=== PATIENT | male | born 1930 | race Caucasian/White ===

== ENCOUNTER 2018-03-15 12:54 | Emergency (ER) | payer MEDICARE, OTHER ==
[2018-03-15] MEDS ORDERED: Acetaminophen 500 MG TAB ONE (14:50)
--- NOTE | 2018-03-15 15:02 | CT ---
CT BRAIN WITHOUT CONTRAST: Date: 03/15/18 HISTORY: Fall. Trauma. COMPARISON: CT brain dated 01/22/16. FINDINGS: Moderate atrophy. Moderate to severe microvascular ischemic changes, chronic. There is small volume f luid in the right mastoids. No acute hemorrhage or large volume infarction. IMPRESSION: Chronic findings. No acute intracranial abnormality. POS: [facility]
--- NOTE | 2018-03-15 15:38 | RAD ---
RIGHT HIP 2 VIEWS: Date: 03/15/18 HISTORY: Right hip injury. FINDINGS: Mild osteophytosis. Minimal joint space narrowing. Femoral head contour is maintained. No acute fract ure or dislocation. IMPRESSION: No acute osseous abnormalities are demonstrated. POS: [facility]
--- NOTE | 2018-03-15 15:39 | RAD ---
AP PELVIS 1 VIEW: Date: 03/15/18 HISTORY: Pelvic injury. FINDINGS: No displaced fractures are apparent. Sacrum partially obscured by bowel content and pelvic calcificat ions. Mild degenerative changes of each hip. Pelvic rings are intact. Calcification over the arterial structures. IMPRESSION: 1. No acute osseous abnormalities are demonstrated. 2. Atherosclerosis. POS: [facility]
--- NOTE | 2018-03-15 15:40 | RAD ---
CHEST 1 VIEW: Date: 03/15/18 HISTORY: Preop. COMPARISON: 01/22/16. FINDINGS: Cardiac silhouette is magnified by projection. Pulmonary vasculature is unremarkable. Mediastinum is midline with aortic calcification. No lobar consolidation or evidence of pneumothorax. IMPRESSION: 1. Atherosclerosis. 2. No acute cardiopulmonary abnormalities are otherwise demonstrated. POS: [facility]
== END 2018-03-15 16:07 | disposition home or self-care (01) ==
LOC: ERS 12:54
DX: S70.01XA Contusion of right hip, initial encounter (principal); S50.312A Abrasion of left elbow, initial encounter; S50.311A Abrasion of right elbow, initial encounter; I10 Essential (primary) hypertension; F17.210 Nicotine dependence, cigarettes, uncomplicated; Z79.82 Long term (current) use of aspirin; W18.30XA Fall on same level, unspecified, initial encounter
CPT/HCPCS: 70450; 71045; 72170

== ENCOUNTER 2018-05-16 14:21 | Inpatient (IN) | payer MEDICARE, MEDICAID ==
[2018-05-16 15:21] LABS: #Lymphocytes 0.5 thou/uL (1.20-3.40); #Monocytes 0.5 thou/uL (0.11-0.59); #Neutrophils 7.2 thou/uL (1.40-6.50); %Basophils 0.2 % (0.0-1.0); %Eosinophils 0.5 % (0.0-10.0); %Lymphocytes 6.5 % (21.0-51.0); %Monocytes 5.9 % (0.0-10.0); %Neutrophils 86.8 % (42.0-75.0); Hemoglobin 13.5 g/dL (14.0-18.0); Mean Corpuscular HGB CONC 32.7 g/dL (32.0-36.0); Mean Corpuscular Hemoglobin 30.3 pg (27.0-31.0); Mean Corpuscular Volume 92.6 fL (78.0-98.0); Mean Platelet Volume 8.5 fL (7.4-10.4); Platelet Count 187 thou/uL (130-400); RBC Distribution Width 13.3 % (11.5-14.5); Red Blood Cell (RBC) Count 4.47 mill/uL (4.70-6.10); White Blood Cell (WBC) Count 8.3 thou/uL (4.8-10.8)
--- NOTE | 2018-05-16 15:32 | RAD ---
RADIOGRAPH CHEST 1 VIEW: HISTORY: An 87-year-old male with chest pain. FINDINGS: The thoracic aorta is tortuous and ectatic. There is no evidence of air space density, pneumothorax, or pulmonary edema. The lateral costophrenic angles are sharp. There is no cardiomegaly. IMPRESSION: 1) No acute pulmonary findings. 2) Ectasia of thoracic aorta. jessie [] POS: [facility]
[2018-05-16 15:36] LABS: ALT (SGPT) 17 U/L (8-55); AST (SGOT) 28 U/L (5-34); Albumin 3.5 g/dL (3.4-4.8); Alcohol Less than 10 mg/dL (Less than 10); Alkaline Phosphatase 92 U/L (40-150); Anion Gap 14 mmol/L (10-20); BUN (Urea Nitrogen) 23 mg/dL (8.4-25.7); Bilirubin, Total 0.7 mg/dL (0.2-1.2); CK (CPK) 559 U/L (30-200); Calc. Creatinine Clearance 0 mL/min (70-130); Calcium 9.3 mg/dL (7.8-10.44); Carbon Dioxide 24 mmol/L (23-31); Chloride 106 mmol/L (98-107); Estimated GFR-MDRD 47; Globulin 2.9 g/dL (2.4-3.5); Glucose 94 mg/dL (83-110); Potassium 4.7 mmol/L (3.5-5.1); Protein, Total 6.4 g/dL (5.8-8.1); Sodium 139 mmol/L (136-145)
--- NOTE | 2018-05-16 16:22 | CT ---
CT OF THE BRAIN WITHOUT CONTRAST 05/16/18 INDICATION 87-year-old male status post fall. COMPARISON: Prior exam dated 03/15/18. FINDINGS: There is left periorbital soft tissue contusion. There is left frontal scalp and left parietal scalp contusion. There is stable moderate chronic small vessel white matter ischemic change. Septum pellucidum and thi rd ventricle are midline. No acute infarct, hemorrhage or hydrocephalus is present. Partial effusion of the right mastoid air cells is stable to the prior dated 03/15/18. IMPRESSION: 1. No acute intracranial abnormality. 2. Left periorbital soft tissue contusion and left frontal parietal scalp contusion. 3. Stable moderate chronic small vessel white matter ischemic change. POS: [facility]
[2018-05-16] MEDS ORDERED: Thiamine 100 MG TAB PO SCH (17:30)
[2018-05-16 17:44] LABS: Bilirubin Negative (Negative); Blood, Urine Moderate (Negative); Clarity CLEAR (Clear); Glucose, Urine (Dipstick) Negative (Negative); Leukocyte Negative (Negative); Nitrite Negative (Negative); Protein, Urine (Dipstick) 100 mg/dL (Neg-Trace)
[2018-05-16 17:46] LABS: Bacteria/HPF None Seen HPF (None Seen); Hyaline Casts/LPF 0-3 HYALINE CAST LPF (0-3 Hyaline); Squamous Epithelial 0-3 HPF (0-3); WBC/HPF 0-3 HPF (0-3)
[2018-05-16] MEDS ORDERED: Thiamine 100 MG TAB ONE (18:21)
--- NOTE | 2018-05-16 18:44 | PDOC.FPRHP ---
- History of Present Illness Chief Complaint: found down History of Present Illness: The patient is an 87YO gentleman with a PMH significant for HTN and tobacco use who was brought to the ED via EMS after his neighbor found him down at home around noon on the date of presentation. The history was obtained from the admitting ER physician and the patient's neighbor who was present at the time of examination as the patient was only oriented to self. He could also not recall any events leading up to him coming to the ED. Per the ED physician, the patient was found down at home earlier today covered in feces. Per the patient' s neighbor, Dpahne, she went and checked on the patient 3 times the day before she found him down at home. She did report that he has not quite been acting like himself over the last 2 weeks and reports decreased PO intake, increased fragility, and confusion. She also reports that the patient has refused to let her bathe him for at least 2 weeks. Daphne stated that she last saw the patient around 11PM the night before. She reports finding the patient down at home around noon on the date of admission with feces in his hair and sores on his legs suggesting he had been crawling around on the floor. Of note, per the patient's PCP, APS had been previously notified of this patient 's unsafe home environment and his inability to properly care for himself and had opened a case on him. However, they did not pursue anything further after the patient refused placement and was deemed competent enough to make such a decision. ED Course: 1L LR & 100mg thiamine - Allergies/Adverse Reactions Allergies Allergy/AdvReac Type Severity Reaction Status Date / Time No Known Allergies Allergy Verified 01/22/16 12:37 - Home Medications Medication Instructions Recorded Confirmed Type Aspirin [Ecotrin Low Strength] 81 mg PO DAILY 01/22/16 01/22/16 History Hydrochlorothiazide 12.5 mg PO DAILY 01/22/16 01/22/16 History Lisinopril [Zestril] 40 mg PO DAILY 01/22/16 01/22/16 History Naproxen Sodium [Aleve] 220 mg PO DAILY 01/22/16 01/22/16 History Esomeprazole Magnesium [NexIUM] 40 mg PO DAILY #30 01/23/16 Rx Fluconazole [Diflucan] 100 mg PO DAILY #13 tab 01/23/16 Rx - History PMHx: HTN, PVD, psoriasis, OA, h/o PUD & GI bleed PSHx: none FHx: non-contributory Social: The patient lives at home alone in [place] and per his neighbor, his house is very unkept and unsafe. Per chart review, patient smokes but no reported EtOH or drug use. - Review of Systems ROS unobtainable: due to mental status - Vital signs BP: 172/63 HR: 72 RR: 19 Tmax: 98.5F Pox: 100% on RA Wt: 47.63 kg - Physical Exam Constitutional: NAD -Constitutional: oriented only to person and easily flustered on questioning; extremely unkept with feces covering head and face & multiple sores on LEs HEENT: MMM, oropharynx clear, other (matted left eye w/ purulent discharge and conjunctival injection noted; extremely poor dentition; mild edema and erythema under left eye) Neck: supple, FROM Chest: no-tender to palpation, no lesions Heart: RRR, normal S1/S2, pulses present, no edema Lungs: CTAB, no respiratory distress, good air movement, no wheezing, no retractions Abdomen: soft, non-tender, bowel sounds present Musculoskeletal: normal structure, ROM grossly normal Neurological: no focal deficit, CN II-XII intact (grossly), normal sensation Skin: good turgor, no jaundice -Skin: ulcerations on B/L LEs, notably on knees and feet Heme/Lymphatic: no unusual bruising or bleeding, no purpura, no petechia Psychiatric: other (Poor judgment and insight with poor recent and remote memory as well) FMR H&P: Results - Labs Result Diagrams: 05/16/18 15:08 05/16/18 15:08 Lab results: WBC 8.3 thou/uL (4.8-10.8) 05/16/18 15:08 Hgb 13.5 g/dL (14.0-18.0) L 05/16/18 15:08 Hct 41.4 % (42.0-52.0) L 05/16/18 15:08 MCV 92.6 fL (78.0-98.0) 05/16/18 15:08 Plt Count 187 thou/uL (130-400) 05/16/18 15:08 Neutrophils % 86.8 % (42.0-75.0) H 05/16/18 15:08 Sodium 139 mmol/L (136-145) 05/16/18 15:08 Potassium 4.7 mmol/L (3.5-5.1) 05/16/18 15:08 Chloride 106 mmol/L (98-107) 05/16/18 15:08 Carbon Dioxide 24 mmol/L (23-31) 05/16/18 15:08 BUN 23 mg/dL (8.4-25.7) 05/16/18 15:08 Creatinine 1.42 mg/dL (0.7-1.3) H 05/16/18 15:08 Glucose 94 mg/dL (83-110) 05/16/18 15:08 Calcium 9.3 mg/dL (7.8-10.44) 05/16/18 15:08 Total Bilirubin 0.7 mg/dL (0.2-1.2) 05/16/18 15:08 AST 28 U/L (5-34) 05/16/18 15:08 ALT 17 U/L (8-55) 05/16/18 15:08 Alkaline Phosphatase 92 U/L (40-150) 05/16/18 15:08 Creatine Kinase 559 U/L (30-200) H 05/16/18 15:08 Serum Total Protein 6.4 g/dL (5.8-8.1) 05/16/18 15:08 Albumin 3.5 g/dL (3.4-4.8) 05/16/18 15:08 Urine Ketones Trace mg/dL (Negative) H 05/16/18 17:00 Urine Blood Moderate (Negative) H 05/16/18 17:00 Urine Nitrite Negative (Negative) 05/16/18 17:00 Ur Leukocyte Esterase Negative (Negative) 05/16/18 17:00 Urine RBC 11-20 HPF (0-3) H 05/16/18 17:00 Urine WBC 0-3 HPF (0-3) 05/16/18 17:00 Ur Squamous Epith Cells 0-3 HPF (0-3) 05/16/18 17:00 Urine Bacteria None Seen HPF (None Seen) 05/16/18 17:00 - EKG Interpretation EKG: Sinus w/ periodic PVCs. prolonged QTc of 488. - Radiology Interpretation CT scan - head Status: report reviewed by me ( L periorbital soft tissue contusion & L frontal parietal scalp contusion w/ stable moderate small vessel chronic ischemic changes) Chest x-ray Status: report reviewed by me (negative) FMR H&P: A/P - Problem List (1) LENA (acute kidney injury) Current Visit: No Status: Acute Code(s): N17.9 - ACUTE KIDNEY FAILURE, UNSPECIFIED (2) Osteoarthritis Current Visit: Yes Status: Chronic Code(s): M19.90 - UNSPECIFIED OSTEOARTHRITIS, UNSPECIFIED SITE (3) History of GI bleed Current Visit: Yes Status: Chronic Code(s): Z87.19 - PERSONAL HISTORY OF OTHER DISEASES OF THE DIGESTIVE SYSTEM (4) Psoriasis Current Visit: Yes Status: Chronic Code(s): L40.9 - PSORIASIS, UNSPECIFIED (5) HTN (hypertension) Current Visit: No Status: Chronic Code(s): I10 - ESSENTIAL (PRIMARY) HYPERTENSION (6) PVD (peripheral vascular disease) Current Visit: No Status: Chronic Code(s): I73.9 - PERIPHERAL VASCULAR DISEASE, UNSPECIFIED (7) Tobacco use Current Visit: No Status: Chronic Code(s): Z72.0 - TOBACCO USE (8) Conjunctivitis Current Visit: Yes Status: Acute Code(s): H10.9 - UNSPECIFIED CONJUNCTIVITIS Qualifiers: Conjunctivitis type: acute Acute conjunctivitis type: bacterial Laterality: left Qualified Code(s): H10.32 - Unspecified acute conjunctivitis , left eye - Plan 87YOM with h/o HTN & PVD who was brought in via EMS after being found down at home and found to have an LENA. LENA 2/2 volume depletion from poor PO intake: - Cr of 1.42 on admission which is > than baseline per chart review. Likely pre- renal 2/2 volume depletion from poor PO intake as CK was also slightly elevated at just over 500. - s/p 1L of LR in the ED. Will continue mIVFs w/ LR @ 90mL/hr overnight and recheck patient's Cr in the AM. Inability to care for self: - Patient has a difficult home situation and APS has been asked to look as him once before already as PCP felt his home was an unsafe environment. - CM consulted to get APS on board again as patient is NOT safe to return home. - WC also consulted to address leg sores. - PT & OT also consulted to address physical deconditioning reported by neighbor. Bacterial conjunctivitis: - L eye matted shut w/ purulent d/c noted. Will start on topical erythromycin ointment. HTN: - Aware, will resume home meds. PVD: - Will resume home meds. OA: - Aware, will give tylenol PRN for pain h/o GI bleed 2/2 PUD: - Aware, will resume home PPI. psoriasis: - Aware, patient not on any home meds at this time. Dispo: Will admit to medical obs and hydrate overnight. Will need CM to assist w / placement for discharge as patient unsafe to go home. FMR H&P: Upper Level - Pertinent history 87 yo male here after being found down in house by neighbor, Daphne, who provides most of the history. Patient has a history of frequent falls, peripheral vascular disease, tobacco abuse. Neighbor is an informal manager marketing for [employer] and goes to his house about 3 times a day. She reports that patient has been declining over the past couple weeks, eating less, more easily agitated. Friday night around 23:00 when she left was the last time she saw him. However, when she came over around lunch today, he was crawling on the floor, covered in feces and the left side of his face was swollen. He does not remember anything prior to coming into ER. He is only oriented to person. - Pertinent findings 155/72 HR: 74 RR: 21 GEN: smelled of feces with dried stool on face, arms, legs EYES: left eye swollen shut, purulent discharge on left eyelids SKIN: skin tears on forearms, knees, legs Creatinine: 1.42 TROP: 0.230, 0.201 CK: 559 Brain and CXR reviewed and unremarkable - Plan Date/Time: 05/16/18 226 INilson DO, have evaluated this patient and agree with findings/plan as outlined by internet marketer resident. Pertinent changes/additions are listed here. 1. LENA: patient is s/p 1L NS in the ER, continue to fluid resuscitate, recheck in AM 2. Encephalopathy: patient seems to be altered from baseline, per the neighbor she reports he is more agitated and less agreeable to things like bathing, also he is falling more. Clinic records indicate he has been evaluated by APS in the past month or so. However he might benefit from a higher level of care. Will have social work evaluate. 3. Conjunctivitis: erythromycin ophth
[2018-05-16 21:34] LABS: Troponin I 0.201 ng/mL (< 0.028)
[2018-05-17 00:21] LABS: Troponin I 0.188 ng/mL (< 0.028)
[2018-05-17] MEDS ORDERED: Acetaminophen 325 MG TAB PO PRN ×2 (01:47→03:05)
[2018-05-17] MEDS ORDERED: Ondansetron ODT 4 MG TAB SL PRN (01:47)
[2018-05-17] MEDS ORDERED: Ondansetron PF 4 MG/2 ML Vial IVP PRN (01:47)
[2018-05-17] MEDS ORDERED: Lactated Ringer's 1,000 ML IV SCH ×2 (01:47→03:05)
[2018-05-17] MEDS ORDERED: Ondansetron ODT 4 MG TAB PO PRN (03:05)
[2018-05-17 05:33] LABS: Anion Gap 12 mmol/L (10-20); BUN (Urea Nitrogen) 22 mg/dL (8.4-25.7); Calc. Creatinine Clearance 34 mL/min (70-130); Calcium 8.8 mg/dL (7.8-10.44); Carbon Dioxide 25 mmol/L (23-31); Chloride 103 mmol/L (98-107); Estimated GFR-MDRD 66; Glucose 96 mg/dL (83-110); Potassium 4.1 mmol/L (3.5-5.1); Sodium 136 mmol/L (136-145)
--- NOTE | 2018-05-17 06:33 | PDOC.FM ---
- Subjective Subjective: Oriented to person this morning. No overnight events. Denies pain. Good PO intake. - Objective MAR Reviewed: Yes Vital Signs & Weight: Vital Signs (12 hours) Temp Pulse Resp BP Pulse Ox 05/17/18 01:50 97.5 F L 114 H 18 177/79 H 96 Weight Weight 50.303 kg Result Diagrams: 05/16/18 15:08 05/17/18 03:52 Phys Exam - Physical Examination Constitutional: NAD HEENT: moist MMs Neck: supple Respiratory: no wheezing, clear to auscultation bilateral Cardiovascular: RRR, no significant murmur Gastrointestinal: soft, non-tender, positive bowel sounds Musculoskeletal: no edema Neurological: moves all 4 limbs Psychiatric: normal affect Skin: cap refill <2 seconds Deviation from normal: multiple skin wounds/contusions including left face, toes , heels, left arm -: left knee Dx/Plan (1) LENA (acute kidney injury) Code(s): N17.9 - ACUTE KIDNEY FAILURE, UNSPECIFIED Status: Acute (2) Physical deconditioning Code(s): R53.81 - OTHER MALAISE Status: Acute (3) Conjunctivitis Code(s): H10.9 - UNSPECIFIED CONJUNCTIVITIS Status: Acute Qualifiers: Conjunctivitis type: acute Acute conjunctivitis type: bacterial Laterality: left Qualified Code(s): H10.32 - Unspecified acute conjunctivitis , left eye (4) History of GI bleed Code(s): Z87.19 - PERSONAL HISTORY OF OTHER DISEASES OF THE DIGESTIVE SYSTEM Status: Chronic (5) Osteoarthritis Code(s): M19.90 - UNSPECIFIED OSTEOARTHRITIS, UNSPECIFIED SITE Status: Chronic (6) Psoriasis Code(s): L40.9 - PSORIASIS, UNSPECIFIED Status: Chronic (7) PUD (peptic ulcer disease) Code(s): K27.9 - PEPTIC ULC, SITE UNSP, UNSP AC OR CHR, W/O HEMOR OR PERF Status: Acute (8) HTN (hypertension) Code(s): I10 - ESSENTIAL (PRIMARY) HYPERTENSION Status: Chronic (9) PVD (peripheral vascular disease) Code(s): I73.9 - PERIPHERAL VASCULAR DISEASE, UNSPECIFIED Status: Chronic (10) Tobacco use Code(s): Z72.0 - TOBACCO USE Status: Chronic - Plan Plan: 87yo male with pmh HTN, PVD who was brought in via EMS after being found down at home and found to have an LENA LENA 2/2 volume depletion from poor PO intake, resolved - Discontinue IVF as renal function has improved and pt tolerating PO Physical deconditioning - CM consulted, APS previously involved. Pt is not safe to return home. See HPI for further details - PT/OT consulted Leg wounds - Wound care consulted Elevated Trops - Downtrending. Pt denies chest pain. Bacterial conjunctivitis - Topical erythromycin ointment Elevated CK, resolved HTN - Continue home meds PVD - Continue home meds OA - Tylenol PRN h/o GI bleed 2/2 PUD - Continue home Protonix Psoriasis Code Status: FULL DVT ppx: SCDs PCP: [facility] () Medically stable to transfer to medical Dispo: PT/OT recs for placement
[2018-05-17] MEDS: Hydrochlorothiazide 25 MG TAB PO SCH (08:25)
[2018-05-17] MEDS: Erythromycin Base 0.5% Oint 1 GM TUBE L EYE SCH ×4 (08:26→20:44)
[2018-05-17] MEDS: Aspirin 81 mg Enteric Coated Tablet PO SCH (08:26)
[2018-05-17] MEDS ORDERED: Non-Formulary Item 1 EACH (Esomeprazole Magnesium [Nexium] 40 MG) PO SCH (09:00)
[2018-05-17] MEDS ORDERED: Prevnar 13-Val Conj/PF 0.5 ML SYRINGE IM ONE (09:00)
--- NOTE | 2018-05-18 05:57 | PDOC.FM ---
- Subjective Subjective: No overnight events. Drank ensure and ate kelton crackers last night. Really likes the ensure drinks. Good appetite this morning, requesting breakfast. Denies pain. Alert and oriented to person and place but not time. - Objective MAR Reviewed: Yes Vital Signs & Weight: Vital Signs (12 hours) Temp Pulse Resp BP Pulse Ox 05/18/18 04:15 97.9 F 67 16 170/75 H 98 05/18/18 00:00 98.2 F 63 16 168/67 H 99 05/17/18 20:00 97.3 F L 60 16 143/68 H 93 L Weight Weight 50.303 kg I&O: 05/16/18 05/17/18 05/18/18 05:59 06:59 06:59 Intake Total 150 Output Total 300 Balance -150 Result Diagrams: 05/16/18 15:08 05/17/18 03:52 Phys Exam - Physical Examination Constitutional: NAD HEENT: moist MMs Neck: supple Respiratory: no wheezing, clear to auscultation bilateral Cardiovascular: RRR, no significant murmur Gastrointestinal: soft, non-tender, positive bowel sounds Musculoskeletal: no edema Neurological: moves all 4 limbs Psychiatric: normal affect Deviation from normal: alert and oriented to person and place. Not time Skin: cap refill <2 seconds Deviation from normal: wounds and contusions to left face, arm and bilateral toes. Dx/Plan (1) LENA (acute kidney injury) Code(s): N17.9 - ACUTE KIDNEY FAILURE, UNSPECIFIED Status: Acute (2) Physical deconditioning Code(s): R53.81 - OTHER MALAISE Status: Acute (3) Conjunctivitis Code(s): H10.9 - UNSPECIFIED CONJUNCTIVITIS Status: Acute Qualifiers: Conjunctivitis type: acute Acute conjunctivitis type: bacterial Laterality: left Qualified Code(s): H10.32 - Unspecified acute conjunctivitis , left eye (4) History of GI bleed Code(s): Z87.19 - PERSONAL HISTORY OF OTHER DISEASES OF THE DIGESTIVE SYSTEM Status: Chronic (5) Osteoarthritis Code(s): M19.90 - UNSPECIFIED OSTEOARTHRITIS, UNSPECIFIED SITE Status: Chronic (6) Psoriasis Code(s): L40.9 - PSORIASIS, UNSPECIFIED Status: Chronic (7) PUD (peptic ulcer disease) Code(s): K27.9 - PEPTIC ULC, SITE UNSP, UNSP AC OR CHR, W/O HEMOR OR PERF Status: Acute (8) HTN (hypertension) Code(s): I10 - ESSENTIAL (PRIMARY) HYPERTENSION Status: Chronic (9) PVD (peripheral vascular disease) Code(s): I73.9 - PERIPHERAL VASCULAR DISEASE, UNSPECIFIED Status: Chronic (10) Tobacco use Code(s): Z72.0 - TOBACCO USE Status: Chronic - Plan Plan: 87yo male with pmh HTN, PVD who was brought in via EMS after being found down at home and found to have an LENA Physical deconditioning - CM consulted, APS previously involved. Pt is not safe to return home. See HPI for further details - PT/OT consulted Leg wounds - Wound care consulted Elevated Trops - Downtrending. Pt denies chest pain. Bacterial conjunctivitis - Topical erythromycin ointment LENA 2/2 volume depletion from poor PO intake, resolved Elevated CK, resolved HTN - Continue home meds - Start Amlodipine as pressures uncontrolled PVD - Continue home meds OA - Tylenol PRN h/o GI bleed 2/2 PUD - Continue home Protonix Psoriasis Code Status: FULL DVT ppx: SCDs PCP: HORACIO () Medically stable to transfer to medical Dispo: PT/OT recs for placement
[2018-05-18] MEDS: Aspirin 81 mg Enteric Coated Tablet PO SCH (08:13)
[2018-05-18] MEDS: Hydrochlorothiazide 25 MG TAB PO SCH (08:13)
[2018-05-18] MEDS: Amlodipine 5 MG TAB PO SCH (08:14)
[2018-05-18] MEDS: Erythromycin Base 0.5% Oint 1 GM TUBE L EYE SCH ×4 (08:15→19:56)
--- NOTE | 2018-05-18 09:56 | HP ---
ADDENDUM: Please see note from Dr. Eileen Orozco, for which I agree. Also the progress note from Dr. Inez Darden, for which I agree. The patient was seen, evaluated, and discussed with the residents by bedside. HISTORY OF PRESENT ILLNESS: This is an 87-year-old gentleman, who sounds like he has developed dementia with time, although it sounds like for the most part his activities of daily living had been maintained until the last few weeks to months. A neighbor found him down probably upwards of 12 hours maximum and CK had bumped up to 559, it is not horrible. Creatinine was little bit elevated, but exam significant for him just being extremely unkempt with numerous scabs and lesions on his skin, decubitus sores on his heels, apparently was covered his own facies, left eye conjunctivitis as well. It sounds like APS has been involved in his case and trying to help him. He has intermittent decrease in mental status at times leads to dangerous home situation. Today actually, he seems some alert to name and place, although he is very difficult to understand, but does sound like he is going to consider going to rehab or something similar. PAST MEDICAL HISTORY: Per the residents history and physical. Of note, it does not sound like there is family involved in the patient's. There is really no family around. PAST SURGICAL HISTORY: Per the residents history and physical. Of note, it does not sound like there is family involved in the patient's. There is really no family around. FAMILY HISTORY: Per the residents history and physical. Of note, it does not sound like there is family involved in the patient's. There is really no family around. SOCIAL HISTORY: Per the residents history and physical. Of note, it does not sound like there is family involved in the patient's. There is really no family around. PHYSICAL EXAMINATION: GENERAL: No apparent distress. HEENT: Does have left eye conjunctivitis. Rest of the ENT is fairly normal. Moist mucosa. Does have some bruising and some scabbing on the face. CHEST: Coarse. CARDIOVASCULAR: Regulae rate and rhythm. ABDOMEN: Benign. EXTREMITIES AND SKIN: Significant for just numerous sores, scabs, pressure sores, not in particular looks infected. LABORATORY DATA: Really labs look fairly benign. Creatinine is up a little bit and little bit hematuria too. ASSESSMENT: 1. Status post fall and altered mental status. 2. Elevated creatinine and CK. 3. Sounds like dementia. 4. Numerous other medical problems including psoriasis and hypertension. 5. Conjunctivitis. PLAN: Continue IV fluids. Continue home medications. Wound care and topical antibiotics to the left eye. But sounds like a lot of this is going to be I was trying to get him in a situation, where it does not sound like him being home alone. He is safe at this point in time and hopefully, we can arrange for a different living situation for him at least short-term rehab at minimum. Job ID: [id number]
--- NOTE | 2018-05-18 12:39 | PRG ---
DATE OF SERVICE: 05/18/2018 Mr. Faustin is an 87-year-old male who was found down at home by a neighbor who looks in on him. He was evidently very disheveled and covered in with some sores and feces in his hair. He was brought to our ER and subsequently admitted for case management placement. This morning, he is awake and alert. He is difficult to understand, but he sounds like he may have a hearing problem. In the event, his CBC was normal. His chemistries were normal, showing a degree of renal insufficiency with a creatinine of 1.42 and a GFR of 47. His troponins appear to be more related to stress ischemia. Case management is working on placement as it appears he is approaching at time where he may be unsafe living by himself. Job ID: [id number]
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
[2018-05-19] MEDS: Aspirin 81 mg Enteric Coated Tablet PO SCH (09:10)
[2018-05-19] MEDS: Amlodipine 5 MG TAB PO SCH (09:10)
[2018-05-19] MEDS: Hydrochlorothiazide 25 MG TAB PO SCH (09:11)
[2018-05-19] MEDS: Erythromycin Base 0.5% Oint 1 GM TUBE L EYE SCH ×4 (09:12→21:17)
--- NOTE | 2018-05-19 13:05 | PRG ---
DATE OF SERVICE: 05/19/2018 Mr. Faustin is sitting quietly in bed, in no distress. He is awake, alert, tearful. We are awaiting placement. Also note that he has microscopic hematuria, which we can workup as an outpatient with a CT urogram and cystoscopy. Job ID: [id number]
[2018-05-19] MEDS ORDERED: Ziprasidone 20 MG VIAL IM PRN (18:31)
[2018-05-19] MEDS ORDERED: Sterile Water 10 ML VIAL FS PRN (18:33)
[2018-05-19] MEDS ORDERED: Ziprasidone 20 MG VIAL IM SCH (18:45)
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
[2018-05-20] MEDS: Amlodipine 5 MG TAB PO SCH (09:12)
[2018-05-20] MEDS: Hydrochlorothiazide 25 MG TAB PO SCH (09:12)
[2018-05-20] MEDS: Aspirin 81 mg Enteric Coated Tablet PO SCH (09:12)
[2018-05-20] MEDS: Erythromycin Base 0.5% Oint 1 GM TUBE L EYE SCH ×4 (09:13→21:27)
[2018-05-20] MEDS ORDERED: Ziprasidone 20 MG VIAL IM PRN (11:21)
[2018-05-20] MEDS ORDERED: Sterile Water 10 ML VIAL FS PRN (11:34)
--- NOTE | 2018-05-20 11:53 | PRG ---
DATE OF SERVICE: 05/20/2018 Mr. Faustin seems to be having some episodes of delirium during the night. Currently, he is quite happy and speaking rapidly in Luxembourgish. I suggest that we add Pastor making it [email or web address]. Job ID: [id number]
[2018-05-20] MEDS: Ziprasidone 20 MG CAP PO PRN (13:27)
[2018-05-21] MEDS: Ziprasidone 20 MG CAP PO PRN (01:23)
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
[2018-05-21] MEDS: Amlodipine 5 MG TAB PO SCH (09:05)
[2018-05-21] MEDS: Multivitamin W/ Minerals 1 TAB PO SCH (09:06)
[2018-05-21] MEDS: Erythromycin Base 0.5% Oint 1 GM TUBE L EYE SCH ×4 (09:06→20:40)
[2018-05-21] MEDS: Aspirin 81 mg Enteric Coated Tablet PO SCH (09:06)
[2018-05-21] MEDS: Hydrochlorothiazide 25 MG TAB PO SCH (09:06)
--- NOTE | 2018-05-21 12:48 | PRG ---
DATE OF SERVICE: 05/21/2018 SUBJECTIVE: Gonzales is having episodes of delirium, but is otherwise quite happy, alert, in no distress. We are hoping to place him in the same facility, where a son resides as well. In the event from a clinical standpoint other than the mild episodes of delirium, Mr. Faustin is in no distress. LABORATORY DATA: All normal. Toxicology is negative. Chemistries normal. Continue to await placement. Job ID: [id number]
--- NOTE | 2018-05-21 15:35 | PQF ---
CLINICAL DOCUMENTATION IMPROVEMENT CLARIFICATION FORM: ICD-10 Updated PLEASE DO AN ADDENDUM TO THE PROGRESS NOTE WITH ANY DOCUMENTATION UPDATES OR ADDITIONS AND CARRY THROUGH TO DC SUMMARY. THANK YOU. DATE: 05/21/2018; 05/22/2018 ATTN: Dr. Darden/ Attending Dr. Miranda Please exercise your independent, professional judgment in responding to the clarification form. Clinical indicators are provided on the bottom of this form for your review Please check appropriate box(s): [x] I (concur) with the Wound Care findings as stated below. [ ] Pressure Ulcer: (Stage I: Erythema; Stage II: Partial thickness; Stage III : Full thickness; Stage IV: Necrosis to muscle/bone) [ ] Location: POA: [ ] Yes [ ] No[ ] Unable to determine Stage (I to IV): ___(Left___Right___Bilateral__ N/A___) [ ] Location: POA: [ ] Yes [ ] No[ ] Unable to determine Stage (I to IV): ___(Left____Right___Bilateral___N/A__) [ ] No pressure ulcer diagnosis [ ] Deep tissue injury [ ] Other diagnosis [ ] Unable to determine In addition, please specify: Present on Admission (POA): [x] Yes [ ] No [ ] Unable to determine For continuity of documentation, please document condition throughout progress notes and discharge summary. Thank You. CLINICAL INDICATORS - SIGNS / SYMPTOMS / LABS Wound Care Assessment 05/17: R heel Pressure Ulcer Stage III RISKS: H&P 05/17: PE: Skin: ulcerations on B/L LEs, notably on knees and feet. 82 yo with h/o HTN PVD. LENA 2/2 volume depletion from poor po intake. Inability to care for self. TREATMENT: 05/16 Consult: Wound Care Reema;/ Treat 05/17: WC recommendations: follow Nursing Wound Care Protocol waffle mattress in place Pre-ulcer skin changes limited to persistent focal edema (Stage 1) Abrasion, blister, partial thickness skin loss involving epidermis and/or dermis (Stage 2) Full thickness skin loss involving damage or necrosis of SQ tissue. (Stage 3) Necrosis of soft tissue through to underlying muscle, tendon, or bone. (Stage 4) Purple or maroon discolored skin or blood filled blister Thank you, Chante (This form is maintained as a part of the permanent medical record) 2015 [employer] All Rights Reserved Chante Panchal RN, BSN [email or web address] Office: [phone] [facility] HOSPITALSergey
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
[2018-05-22] MEDS: Amlodipine 5 MG TAB PO SCH (08:39)
[2018-05-22] MEDS: Aspirin 81 mg Enteric Coated Tablet PO SCH (08:41)
[2018-05-22] MEDS: Hydrochlorothiazide 25 MG TAB PO SCH (08:41)
[2018-05-22] MEDS: Multivitamin W/ Minerals 1 TAB PO SCH (08:41)
[2018-05-22] MEDS: Erythromycin Base 0.5% Oint 1 GM TUBE L EYE SCH ×4 (08:43→20:12)
--- NOTE | 2018-05-22 12:09 | PRG ---
DATE OF SERVICE: 05/22/2018 SUBJECTIVE: We now know that Mr. Faustin wears glasses, which he did not bring with him. He also wears a hearing aid, which he did not bring with him. I believe that most of his episodes of confusion are related to his diminished hearing and seeing. We have asked that he had these brought up to the hospital. Otherwise, he is awake, alert, cheerful, eating breakfast. Job ID: [id number]
[2018-05-22] MEDS ORDERED: Adacel (T-DAP) 0.5 ML SYRINGE IM ONE (13:15)
[2018-05-23] MEDS ORDERED: Labetalol HCl 100 MG/20 ML VIAL SLOW IVP PRN (05:43)
[2018-05-23] MEDS ORDERED: Ibuprofen 600 MG TAB PO PRN (05:44)
[2018-05-23] MEDS ORDERED: Acetaminophen 325 MG TAB PO PRN (05:44)
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
[2018-05-23] MEDS: Erythromycin Base 0.5% Oint 1 GM TUBE L EYE SCH ×4 (08:31→21:43)
[2018-05-23] MEDS: Amlodipine 5 MG TAB PO SCH (08:32)
[2018-05-23] MEDS: Multivitamin W/ Minerals 1 TAB PO SCH (08:32)
[2018-05-23] MEDS: Hydrochlorothiazide 25 MG TAB PO SCH (08:32)
[2018-05-23] MEDS: Aspirin 81 mg Enteric Coated Tablet PO SCH (08:32)
[2018-05-23] MEDS ORDERED: Hydrochlorothiazide 25 MG TAB PO SCH (09:15)
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
[2018-05-24] MEDS: Erythromycin Base 0.5% Oint 1 GM TUBE L EYE SCH ×4 (09:43→20:19)
[2018-05-24] MEDS: Multivitamin W/ Minerals 1 TAB PO SCH (09:43)
[2018-05-24] MEDS: Aspirin 81 mg Enteric Coated Tablet PO SCH (09:43)
[2018-05-24] MEDS: Hydrochlorothiazide 25 MG TAB PO SCH (09:43)
[2018-05-24] MEDS: Amlodipine 5 MG TAB PO SCH (09:43)
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
[2018-05-25] MEDS: Erythromycin Base 0.5% Oint 1 GM TUBE L EYE SCH ×4 (08:41→20:38)
[2018-05-25] MEDS: Amlodipine 5 MG TAB PO SCH (09:02)
[2018-05-25] MEDS: Multivitamin W/ Minerals 1 TAB PO SCH (09:03)
[2018-05-25] MEDS: Aspirin 81 mg Enteric Coated Tablet PO SCH (09:03)
[2018-05-25] MEDS: Hydrochlorothiazide 25 MG TAB PO SCH (09:03)
[2018-05-25] MEDS ORDERED: Digoxin 0.5 MG/2 ML AMP SLOW IVP SCH (10:00)
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
[2018-05-26 07:19] LABS: Anion Gap 12 mmol/L (10-20); BUN (Urea Nitrogen) 40 mg/dL (8.4-25.7); Calc. Creatinine Clearance 36 mL/min (70-130); Calcium 9.1 mg/dL (7.8-10.44); Carbon Dioxide 27 mmol/L (23-31); Chloride 99 mmol/L (98-107); Estimated GFR-MDRD 69; Glucose 93 mg/dL (83-110); Potassium 4.2 mmol/L (3.5-5.1); Sodium 134 mmol/L (136-145)
[2018-05-26] MEDS ORDERED: Digoxin 0.5 MG/2 ML AMP SLOW IVP SCH (09:00)
--- NOTE | 2018-05-26 09:32 | EKG ---
Test Reason : Blood Pressure : / mmHG Vent. Rate : 117 BPM Atrial Rate : 120 BPM P-R Int : 000 ms QRS Dur : 110 ms QT Int : 344 ms P-R-T Axes : 000 -50 054 degrees QTc Int : 479 ms Atrial fibrillation with rapid ventricular response with premature ventricular or aberrantly conducte d complexes Left anterior fascicular block Abnormal ECG When compared with ECG of 16-MAY-2018 14:41, Atrial fibrillation has replaced Sinus rhythm Confirmed by DR. Kimberly BARCLAY ([id number]) on 05/26/2018 9:32:46 AM Referred By: SHAHRZAD Confirmed By:DR. Kimberly BARCLAY
[2018-05-26] MEDS: Erythromycin Base 0.5% Oint 1 GM TUBE L EYE SCH ×4 (10:00→20:21)
[2018-05-26] MEDS: Hydrochlorothiazide 25 MG TAB PO SCH (10:00)
[2018-05-26] MEDS: Multivitamin W/ Minerals 1 TAB PO SCH (10:01)
[2018-05-26] MEDS: Amlodipine 5 MG TAB PO SCH (10:01)
[2018-05-26] MEDS: Aspirin 81 mg Enteric Coated Tablet PO SCH (10:01)
[2018-05-26 12:26] VITALS: BMI 19.3
--- NOTE | 2018-05-26 15:25 | PQF ---
CLINICAL DOCUMENTATION IMPROVEMENT CLARIFICATION FORM: ICD-10 Updated PLEASE DO AN ADDENDUM TO THE PROGRESS NOTE WITH ANY DOCUMENTATION UPDATES OR ADDITIONS AND CARRY THROUGH TO DC SUMMARY. THANK YOU. DATE: 05/26/2018; 05/27/2018 ATTN: Dr. Kamara/ Attending Dr. Gabriel Please exercise your independent, professional judgment in responding to the clarification form. Clinical indicators are provided on the bottom of this form for your review Please check appropriate box(s): [ ] Rhabdomyolysis [ ] Insignificant lab value [ x] Other diagnosis ___deconditioning [ ] Unable to determine In addition, please specify: Present on Admission (POA): [ ] Yes [ ] No [ x] Unable to determine For continuity of documentation, please document condition throughout progress notes and discharge summary. Thank You. CLINICAL INDICATORS - SIGNS / SYMPTOMS/ LABS are present in the medical record: ER RECORD 05/16: Diagnosis: Rhabdomyolitis H&P 05/17: ([place]) A neighbor found him down probably upwards of 12 hours maximum and CK had bumped up to 559, it is not horrible. PN 05/18: Elevated CK, resolved. RISKS: H&P 05/17: 87 yo with h/o HTN & PVD who was brought in via EMS after being found down at home. LENA 2/2 volume depletion from poor PO intake. TEATMENT: H&P: -s/p 1L of LR in the ED. MAY 10: LR @ 90 mls/hr IV. Dc'd 05/17. Thank you, Chante (This form is maintained as a part of the permanent medical record) 2014 [employer]. All Rights Reserved Chante Panchal RN, BSN [email or web address] Office: [phone] [facility]
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
[2018-05-27] MEDS: Amlodipine 5 MG TAB PO SCH (09:23)
[2018-05-27] MEDS: Hydrochlorothiazide 25 MG TAB PO SCH (09:23)
[2018-05-27] MEDS: Aspirin 81 mg Enteric Coated Tablet PO SCH (09:23)
[2018-05-27] MEDS: Multivitamin W/ Minerals 1 TAB PO SCH (09:23)
[2018-05-27] MEDS: Erythromycin Base 0.5% Oint 1 GM TUBE L EYE SCH ×2 (09:24→12:40)
[2018-05-27 14:50] VITALS: BP 127/64; TEMP 98.3
--- NOTE | 2018-05-28 10:52 | DIS ---
DATE OF ADMISSION: 05/18/2018 DATE OF DISCHARGE: 05/27/2018 ADMITTING ATTENDING: Dr. Wahl. DISCHARGE ATTENDING: Dr. Kahn. CONSULTS: Cardiology, Dr. Murry. PROCEDURES: 1. On 05/16/2018, chest x-ray; impression, no acute pulmonary findings, ectasia of thoracic aorta. 2. On 05/16/2018, brain CT; impression, no acute intracranial abnormality. Left periorbital soft tissue contusion and left frontoparietal scalp contusion. Stable, moderate chronic small-vessel disease and white matter ischemic change. PRIMARY DIAGNOSES: Atrial fibrillation with rapid ventricular response and deconditioning. SECONDARY DIAGNOSES: Acute kidney injury, hypertension, tobacco use, peripheral vascular disease, osteoarthritis, psoriasis, and history of gastrointestinal bleed secondary to peptic ulcer disease. DISCHARGE MEDICATIONS: 1. Hydrochlorothiazide 12.5 mg p.o. daily. 2. Aspirin 81 mg p.o. daily. 3. Lisinopril 40 mg p.o. daily. 4. Esomeprazole 40 mg p.o. daily. 5. Garlic 500 mg p.o. daily. 6. Ibuprofen 200 mg p.o. t.i.d. p.r.n. 7. Acetaminophen 650 mg p.o. q.6 hours p.r.n. 8. Amlodipine 2.5 mg p.o. daily. 9. Erythromycin to left eye q.i.d. 10. Metoprolol succinate 25 mg p.o. daily. 11. Multivitamin one tablet p.o. daily. Discontinued medications: None. HISTORY OF PRESENT ILLNESS AND HOSPITAL COURSE: This is an 87-year-old male who presented to the emergency department after he was found down in his home by his neighbor. On admission, the patient was found to have LENA and was deemed unable to care for himself with deconditioning. He was admitted for his acute kidney injury and was stable for some time while placement arrangements were being made to long term facility. However, during his hospital stay, the patient developed atrial fibrillation with RVR. The patient was then given diltiazem and moved to telemetry where his rate was controlled and he eventually converted back into sinus rhythm. Cardiology was consulted, who recommended continuation of the patient's metoprolol, however, placement was made at [facility]. DISPOSITION: Stable. DISCHARGE INSTRUCTIONS: Location: [facility]. Diet: Healthy heart. ACTIVITY: As tolerated with physical therapy and occupational therapy and fall precautions. FOLLOWUP: Follow up with primary care provider, Dr. Quan, in 14 days. Job ID: [id number]
== END 2018-05-27 15:40 | DRG 682 ==
LOC: ERS 14:21 → INTOOBSV 17:51 → ERHOLD 17:51 → 2NO 05-17 01:23 → SJJU 05-17 10:50 → OBSVTOIN 05-18 10:37 → SURG A 05-23 16:16 → 2NO 05-25 11:50
PROVIDERS: ADMIT Family Medicine; ATTEND Family Medicine
DX: N17.9 Acute kidney failure, unspecified (principal); L89.613 Pressure ulcer of right heel, stage 3; G93.40 Encephalopathy, unspecified; I10 Essential (primary) hypertension; F03.90 Unspecified dementia, unspecified severity, without behavioral disturbance, psychotic disturbance, mood disturbance, and anxiety; L40.9 Psoriasis, unspecified; R31.29 Other microscopic hematuria; I73.9 Peripheral vascular disease, unspecified; I48.91 Unspecified atrial fibrillation; H10.32 Unspecified acute conjunctivitis, left eye; M19.90 Unspecified osteoarthritis, unspecified site; F17.290 Nicotine dependence, other tobacco product, uncomplicated; R53.81 Other malaise; Z87.11 Personal history of peptic ulcer disease; Z79.82 Long term (current) use of aspirin; Z79.1 Long term (current) use of non-steroidal anti-inflammatories (NSAID)
CPT/HCPCS: 36415; 36416; 70450; 71045; 80048; 80053; 80307; 81003; 81015; 82550; 84484; 85025; 90715; 93005; 93010; 93306; 94760; 96360; 96361; J1160; J3486